=== PATIENT | male | born 1965 | race Caucasian/White ===

== ENCOUNTER 2017-03-14 11:45 | Emergency (ER) | payer SELFPAY ==
[~2017-03-14] VITALS: Ht 172.7 cm; Wt 83.9 kg
[2017-03-14 12:52] LABS: BASO # 0.1 10*3/uL (0.0-0.1); BASO % 0.4 % (0.0-1.0); HEMATOCRIT 43.5 % (42.0-52.0); LYMPH # 0.6 10*3/uL (1.3-4.4); LYMPH % 4.4 % (27.0-41.0); MEAN CELL VOLUME 87.3 fl (80.0-94.0); MEAN CORPUSCULAR HGB 30.1 pg (27.0-31.0); MEAN CORPUSCULAR HGB CONC 34.5 g/dl (33.0-37.0); MEAN PLATELET VOLUME 10.5 fl (9.6-12.3); MONO # 0.9 10*3/uL (0.1-1.0); MONO % 6.5 % (3.0-9.0); NEUT # 11.9 10*3/uL (2.3-7.9); NEUT % 88.4 % (47.0-73.0); PLATELET COUNT AUTOMATED 257 10*3/uL (130-400); RED BLOOD COUNT 4.98 10*6/uL (4.50-5.90); RED CELL DISTRI WIDTH 12.9 % (0-14.5); WHITE BLOOD COUNT 13.5 10*3/uL (4.8-10.8)
[2017-03-14 13:07] LABS: ALBUMIN 3.3 gm/dl (3.1-4.5); ALKALINE PHOSPHATASE 93 U/L (45-117); BILIRUBIN, TOTAL 0.7 mg/dl (0.2-1.0); BUN 14 mg/dl (7-24); CARBON DIOXIDE 26 mmol/L (21-32); CHLORIDE 97 mmol/L (98-107); EST GLOM FILT AFRICAN AMERICAN > 60 ml/min; GLUCOSE 129 mg/dL (65-99); POTASSIUM 3.6 mmol/L (3.5-5.1); SGOT/AST 22 IU/L (3-35); SGPT/ALT 22 U/L (12-78); SODIUM 135 mmol/L (136-145)
[2017-03-14 13:33] LABS: BILIRUBIN 1+ (NEGATIVE); BLOOD NEGATIVE (NEGATIVE); CLARITY SL CLOUDY (CLEAR); COLOR YELLOW (YELLOW); GLUCOSE TRACE (NEGATIVE); KETONE 1+ (NEGATIVE); LEUKO ESTERASE NEGATIVE (NEGATIVE); NITRITE NEGATIVE (NEGATIVE); PH 6.5 (5.0-9.0); PROTEIN 2+ (NEGATIVE)
[2017-03-14 13:47] LABS: BACTERIA TRACE; MUCOUS 1+; URINE REFLEX COMMENT NO (NO)
[2017-03-14] MEDS ORDERED: AMOXICILLIN500 M2 PO (14:45)
== END 2017-03-14 15:04 | disposition home or self-care (01) ==
LOC: ED 11:45
PROVIDERS: Emergency Medicine
DX: J32.9 Chronic sinusitis, unspecified (principal); K29.70 Gastritis, unspecified, without bleeding; J02.9 Acute pharyngitis, unspecified; F17.200 Nicotine dependence, unspecified, uncomplicated

== ENCOUNTER 2017-04-09 05:43 | Emergency (ER) | payer SELFPAY ==
[~2017-04-09] VITALS: Ht 172.7 cm; Wt 78.0 kg
[~2017-04-09 05:43] MED LIST: AMOXICILLIN500 M2 PO
[2017-04-09] MEDS ORDERED: NAPROSYN500 MG PO (06:45)
== END 2017-04-09 06:57 | disposition home or self-care (01) ==
LOC: ED
DX: S16.1XXA Strain of muscle, fascia and tendon at neck level, initial encounter (principal); F17.200 Nicotine dependence, unspecified, uncomplicated; X58.XXXA Exposure to other specified factors, initial encounter; Y93.89 Activity, other specified; Y92.89 Other specified places as the place of occurrence of the external cause; Y99.9 Unspecified external cause status

== ENCOUNTER → 2022-04-09 | Outpatient (CLI) | payer OTHER ==
[~2022-04-09] MED LIST changes: +CEPHALEXIN500 M1 PO; +NAPROSYN500 MG PO; +NARCAN4 MG INH
[2022-04-09 19:18] LABS: BASO # 0.1 10*3/uL (0.0-0.1); BASO % 0.6 % (0.0-1.0); EOS # 0.1 10*3/uL (0.0-0.4); EOS % 1.5 % (1.0-4.0); HEMATOCRIT 43.3 % (42.0-52.0); LYMPH # 2.5 10*3/uL (1.3-4.4); LYMPH % 28.3 % (27.0-41.0); MEAN CELL VOLUME 87.1 fl (80.0-94.0); MEAN CORPUSCULAR HGB CONC 34.4 g/dl (33.0-37.0); MEAN PLATELET VOLUME 11.1 fl (9.6-12.3); MONO # 0.7 10*3/uL (0.1-1.0); MONO % 7.9 % (3.0-9.0); NEUT # 5.5 10*3/uL (2.3-7.9); NEUT % 61.6 % (47.0-73.0); PLATELET COUNT AUTOMATED 263 10*3/uL (130-400); RED BLOOD COUNT 4.97 10*6/uL (4.50-5.90); RED CELL DISTRI WIDTH 13.7 % (0-14.5); WHITE BLOOD COUNT 8.9 10*3/uL (4.8-10.8)
[2022-04-09 19:18] LABS: BILIRUBIN 1+ (Negative); BLOOD Negative (Negative); CLARITY Clear (Clear); COLOR Dark Yellow (Yellow); GLUCOSE Negative (Negative); KETONE Trace (Negative); LEUKO ESTERASE Trace (Negative); NITRITE Negative (Negative); PH 5.5 (4.5-8.0); SPECIFIC GRAVITY >= 1.030 (1.001-1.030)
[2022-04-09 19:25] LABS: CALCIUM OXALATE CRYSTALS 2+; MUCOUS 2+
[2022-04-09 19:26] LABS: BACTERIA 1+
[2022-04-09 19:38] LABS: ALKALINE PHOSPHATASE 118 U/L (45-117); BUN 18 mg/dl (7-24); CHLORIDE 108 mmol/L (98-107); CHOLESTEROL 165 mg/dL (<200); CREATININE 0.72 mg/dL (0.70-1.30); FREE T4 1.12 ng/dl (0.76-1.46); LDL CHOLESTEROL 93 mg/dL (9-159); POTASSIUM 3.3 mmol/L (3.5-5.1); SGOT/AST 39 IU/L (3-35); SGPT/ALT 42 U/L (12-78); SODIUM 142 mmol/L (136-145); TOTAL PROTEIN 8.3 gm/dL (6.4-8.2); TRIGLYCERIDES 55 mg/dl (<150)
[2022-04-09 19:55] LABS: VITAMIN D, 25-HYDROXY 18.7 ng/mL (30-100)
[2022-04-11 04:06] LABS: HEPATITIS B SURFACE AB Non Reactive (.)
[2022-04-11 05:07] LABS: RHEUMATOID FACTOR <10.0 IU/mL (<14.0)
[2022-04-11 10:08] LABS: CREATININE,URINE 307.3 mg/dL (Not Estab.)
== END | disposition home or self-care (01) ==
LOC: LAB 18:26
PROVIDERS: ATTEND Internal Medicine
DX: Z12.11 Encounter for screening for malignant neoplasm of colon (principal); I10 Essential (primary) hypertension; R76.8 Other specified abnormal immunological findings in serum

== ENCOUNTER → 2022-05-15 | Outpatient (CLI) | payer OTHER ==
[2022-05-16 22:07] LABS: HEPATITIS C QUANTITATION 660000 IU/mL (.)
== END | disposition home or self-care (01) ==
LOC: LAB 12:19
PROVIDERS: ATTEND Internal Medicine
DX: B16.2 Acute hepatitis B without delta-agent with hepatic coma (principal)

== ENCOUNTER → 2022-06-11 | Outpatient (CLI) | payer OTHER | END | disposition home or self-care (01) | LOC: US 05-28 10:30 | PROVIDERS: ATTEND Internal Medicine | DX: B18.2 Chronic viral hepatitis C (principal) ==

== ENCOUNTER 2025-05-12 19:39 | Emergency (ER) | payer SELFPAY ==
[~2025-05-12] VITALS: Ht 177.8 cm; Wt 78.9 kg
== END 2025-05-12 20:29 ==
LOC: ED 19:39
DX: Z04.89 Encounter for examination and observation for other specified reasons (principal); Z79.899 Other long term (current) drug therapy